=== PATIENT | male | born 1980 | race Caucasian/White ===

== ENCOUNTER 2018-10-28 00:45 | Emergency (ER) | payer SELFPAY ==
[~2018-10-28] VITALS: Ht 193 cm; Wt 111.6 kg
[2018-10-28 01:20] VITALS: BP 144/93
[2018-10-28] MEDS ORDERED: FLUORESCEIN OPHTH TEST STRIP. ONE (01:47)
[2018-10-28] MEDS ORDERED: TETRACAINE 0.5% OPHTH SOLUTION 4ML BOTTLE. ONE (01:47)
[2018-10-28] MEDS ORDERED: EYE-STREAM OPHTH SOLUTION 120 ML BOTTLE. ONE (01:47)
[2018-10-28] MEDS ORDERED: CEPH500C PO (01:56)
[2018-10-28] MEDS ORDERED: POLY10DR3 EACHEYE (01:56)
[2018-10-28] MEDS ORDERED: FLUORESCEIN OPHTH TEST STRIP. OS ONE (02:00)
[2018-10-28] MEDS ORDERED: TETRACAINE 0.5% OPHTH SOLUTION 4ML BOTTLE. OU ONE (02:00)
--- NOTE | 2018-10-28 02:31 | PHYS DOC ---
Past Medical History Past Medical History: Hepatitis, Liver Disease, Other Additional Past Medical Histor: RIGHT EAR DEAFNESS,HEART MUMUR, PTSD Past Surgical History: Cholecystectomy, Other Additional Past Surgical Histo: HERNIA REPAIR, RIGHT LEG FX, TONSILS Alcohol Use: None Drug Use: None Adult General Chief Complaint Chief Complaint: EYE PROBLEMS HPI HPI Patient is a 38 year old male presenting with chief complaint of eye redness and irritation drainage from the eye times one day he is at RSI he says he is very hungry. 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 Review of Systems Review of Systems Respiratory: Denies cough or shortness of breath [] Cardiovascular: No additional information not addressed in HPI [] GI: Denies abdominal pain, nausea, vomiting, bloody stools or diarrhea [] : Denies dysuria or hematuria [] Musculoskeletal: Denies back pain or joint pain [] Integument: Denies rash or skin lesions [] Neurologic: Denies headache, focal weakness or sensory changes [] Endocrine: Denies polyuria or polydipsia [] All other systems were reviewed and found to be within normal limits, except as documented in this note. Current Medications Current Medications Current Medications Medications (Trade) Dose Ordered Sig/Julio Cesar Start Time Stop Time Status Last Admin Dose Admin Balanced Salt Solution (Eye-Stream) 120 ml STK-MED ONCE 10/28/18 01:47 10/28/18 01:48 DC Fluorescein Sodium (Ful-Kim) 1 strip 1X ONCE 10/28/18 02:00 10/28/18 02:01 DC Tetracaine HCl (Tetracaine) 1 drop 1X ONCE 10/28/18 02:00 10/28/18 02:01 DC Allergies Allergies Allergies Coded Allergies Type Severity Reaction Last Updated Verified No Known Drug Allergies 11/09/15 No Physical Exam Physical Exam Constitutional: Well developed, well nourished, no acute distress, non-toxic appearance. [] HENT: Normocephalic, atraumatic, bilateral external ears normal, oropharynx moist, no oral exudates, nose normal. [] Eyes: Left eye there is matted crusty drainage conjunctiva injection cornea shows no uptake anterior chamber quiet no proptosis there is some abnormal eye movements at baseline some nystagmus essentially the patient says is old. Visual acuity is 20/40 in the affected eye possibly mild tenderness and erythema and appear E orbital area but again no proptosis noted. Pulmonary: Normal respiratory effort no increased work of breathing no obvious chest wall trauma Abdomen: Bowel sounds normal, soft, no tenderness, no masses, no pulsatile masses. [] Skin: Warm, dry, no erythema, no rash. [] Back: No tenderness, no CVA tenderness. [] Extremities: No tenderness, no cyanosis, no clubbing, ROM intact, no edema. [] Current Patient Data Vital Signs Vital Signs Date Time Temp Pulse Resp B/P (MAP) Pulse Ox O2 Delivery O2 Flow Rate FiO2 10/28/18 01:20 99.7 118 16 144/93 (110) 96 Room Air 99.7 EKG EKG [] Radiology/Procedures Radiology/Procedures [] Course & Med Decision Making Course & Med Decision Making Pertinent Labs and Imaging studies reviewed. (See chart for details) []Suspect conjunctivitis moderately bad also may be a component of some preseptal cellulitis given the low-grade fever I give Keflex as well as antibiotic drops for the conjunctivitis temp low grade heart rate was 110 on my reevaluation when I was examining his eye. He was given good return precautions we discharged in stable condition. Dragon Disclaimer Dragon Disclaimer This electronic medical record was generated, in whole or in part, using a voice recognition dictation system. Departure Departure Impression: Primary Impression: Conjunctivitis Disposition: 01 HOME, SELF-CARE Condition: STABLE Patient Instructions: Conjunctivitis (Viral and Bacterial) Scripts Cephalexin (CEPHALEXIN) 500 Mg Capsule 1 CAP PO QID, #40 CAP Prov: KODY SOTO MD 10/28/18 Polymyxin B Sulf/Trimethoprim (POLYMYXIN B-TMP EYE DROPS) 10 Ml Drops 1 DROP EACHEYE QID, #10 ML Prov: KODY SOTO MD 10/28/18 KODY SOTO MD Oct 28, 2018 02:31
== END 2018-10-28 02:28 | disposition home or self-care (01) ==
LOC: ER 00:45
DX: H10.89 Other conjunctivitis (principal); Z90.49 Acquired absence of other specified parts of digestive tract
CPT/HCPCS: 99283

== ENCOUNTER 2020-09-04 06:42 | Inpatient (IN) | payer OTHER ==
[~2020-09-04] VITALS: Ht 193 cm; Wt 127.0 kg
[~2020-09-04 06:42] MED LIST: CEPH500C PO; PALI156D IM; POLY10DR3 EACHEYE
--- NOTE | 2020-09-04 08:03 | RAD ---
EXAM: Chest, single view. HISTORY: Cough. Fever. COMPARISON: 11/09/2015 FINDINGS: A frontal view of the chest is obtained. There is no infiltrate, pleural effusion or pneumo thorax. The heart is normal in size. IMPRESSION: No acute pulmonary finding. Electronically signed by: Luciana Mehta MD (09/04/2020 8:00 AM) [facility]
[2020-09-04 10:30] LABS: BARBITURATES NEG (NEG); BENZODIAZEPINES NEG (NEG); CANNABINOIDS NEG (NEG); COCAINE NEG (NEG); METHADONE NEG (NEG); OPIATES NEG (NEG); PHENCYCLIDINE NEG (NEG)
[2020-09-04 10:33] LABS: AMPHETAMINE/METHAMPHETAMINE NEG (NEG); BILIRUBIN,URINE NEGATIVE (NEG); CLARITY,URINE CLEAR; COLOR,URINE YELLOW; NITRITE,URINE NEGATIVE (NEG); PH,URINE 5.5 (<5.0-8.0); PROTEIN,URINE NEGATIVE (NEG-TRACE); UROBILINOGEN,URINE 0.2 mg/dL (0.2 mg/dL)
[2020-09-04 10:40] LABS: BACTERIA,URINE 0 /HPF (0-FEW); RBC,URINE 0 /HPF (0-2); WBC,URINE 0 /HPF (0-4)
[2020-09-04 11:38] LABS: BASO # 0.1 x10^3/uL (0.0-0.2); BASO % 1 % (0-3); EOS % 0 % (0-3); HEMATOCRIT 39.7 % (39.0-53.0); HEMOGLOBIN 13.3 g/dL (13.0-17.5); LYMPH # 1.1 x10^3/uL (1.0-4.8); LYMPH % 12 % (24-48); MEAN CORPUSCULAR HEMOGLOBIN 31 pg (25-35); MEAN CORPUSCULAR HGB CONC 34 g/dL (31-37); MEAN CORPUSCULAR VOLUME 92 fL (79-100); MONO # 1.2 x10^3/uL (0.0-1.1); MONO % 13 % (0-9); NEUT # 6.7 x10^3/uL (1.8-7.7); NEUT % 74 % (31-73); PLATELET COUNT 235 x10^3/uL (140-400); RED CELL DISTRIBUTION WIDTH 14.1 % (11.5-14.5)
[2020-09-04 11:48] LABS: CREATININE 0.8 mg/dL (0.7-1.3); GFR 107.6; POTASSIUM 3.7 mmol/L (3.5-5.1)
[2020-09-04 11:53] LABS: ALBUMIN 3.4 g/dL (3.4-5.0); ALBUMIN/GLOBULIN RATIO 1.2 (1.0-1.7); TOTAL BILIRUBIN 0.3 mg/dL (0.2-1.0); TOTAL PROTEIN 6.3 g/dL (6.4-8.2)
[2020-09-04 11:54] LABS: INFLUENZA A PATIENT NEGATIVE (NEGATIVE); INFLUENZA B PATIENT NEGATIVE (NEGATIVE)
[2020-09-04 11:56] LABS: ACETAMIN < 2 mcg/ml (10-30); ETHANOL < 10 mg/dL (0-10); SALIC < 2.8 mg/dL (2.8-20.0)
--- NOTE | 2020-09-04 13:21 | PHYS DOC ---
Past Medical History Past Medical History: Bipolar, Depression, Hepatitis, Liver Disease, Other Additional Past Medical Histor: RIGHT EAR DEAFNESS,HEART MUMUR, PTSD Past Surgical History: Cholecystectomy, Other Additional Past Surgical Histo: HERNIA REPAIR, RIGHT LEG FX, TONSILS Smoking Status: Current Every Day Smoker Alcohol Use: None Drug Use: None Social History Narrative: PATIENT REPORTS HE IS "CLEAN" General Adult EDM: Chief Complaint: SUICDAL IDEATION HPI: HPI: Patient is a 40 year old male with history of bipolar disorder, anxiety, depression was brought here by EMS for evaluation cough, fever, sore throat, body ache for 2 days. Patient denies any abdominal pain, no chest pain, no trouble breathing. Patient also said he is suicidal, had no specific plan he had a lot of going on in his life that he does not want to live anymore. Review of Systems: Review of Systems: Constitutional: positive for fever or chills. [] Eyes: Denies change in visual acuity. [] HENT: Positive for nasal congestion or sore throat. [] Respiratory: Positive for cough , no shortness of breath. [] Cardiovascular: Denies chest pain or edema. [] GI: Denies abdominal pain, nausea, vomiting, bloody stools or diarrhea. [] : Denies dysuria. [] Musculoskeletal: Denies back pain or joint pain. [] Integument: Denies rash. [] Neurologic: Denies headache, focal weakness or sensory changes. [] Endocrine: Denies polyuria or polydipsia. [] Lymphatic: Denies swollen glands. [] Psychiatric: Positive for depression , suicidal ideation and anxiety. [] Heart Score: Risk Factors: Risk Factors: DM, Current or recent (<one month) smoker, HTN, HLP, family history of CAD, obesity. Risk Scores: Score 0 - 3: 2.5% MACE over next 6 weeks - Discharge Home Score 4 - 6: 20.3% MACE over next 6 weeks - Admit for Clinical Observation Score 7 - 10: 72.7% MACE over next 6 weeks - Early Invasive Strategies Allergies: Allergies: Allergies Coded Allergies Type Severity Reaction Last Updated Verified acetaminophen Allergy Unknown RASH 09/04/20 Yes Physical Exam: PE: Constitutional: Well developed, well nourished, no acute distress, non-toxic appearance. [] HENT: Normocephalic, atraumatic, bilateral external ears normal, oropharynx moist, no oral exudates, nose normal. [] Eyes: PERRLA, EOMI, conjunctiva normal, no discharge. [] Neck: Normal range of motion, no tenderness, supple, no stridor. [] Cardiovascular:Heart rate regular rhythm, no murmur [] Lungs & Thorax: Bilateral breath sounds clear to auscultation [] Abdomen: Bowel sounds normal, soft, no tenderness, no masses, no pulsatile masses. [] Skin: Warm, dry, no erythema, no rash. [] Back: No tenderness, no CVA tenderness. [] Extremities: No tenderness, no cyanosis, no clubbing, ROM intact, no edema. [] Neurologic: Alert and oriented X 3, normal motor function, normal sensory function, no focal deficits noted. [] Psychologic: admitted of being depressed, suicidal ideation but no plan. Current Patient Data: Labs: Laboratory Tests Test 09/04/20 10:00 09/04/20 11:16 09/04/20 11:20 Urine Collection Type Unknown Urine Color Yellow Urine Clarity Clear Urine pH 5.5 (<5.0-8.0) Urine Specific [place] 1.020 (1.000-1.030) Urine Protein Negative mg/dL (NEG-TRACE) Urine Glucose (UA) Negative mg/dL (NEG) Urine Ketones (Stick) Negative mg/dL (NEG) Urine Blood Negative (NEG) Urine Nitrite Negative (NEG) Urine Bilirubin Negative (NEG) Urine Urobilinogen Dipstick 0.2 mg/dL (0.2 mg/dL) Urine Leukocyte Esterase Negative (NEG) Urine RBC 0 /HPF (0-2) Urine WBC 0 /HPF (0-4) Urine Squamous Epithelial Cells Few /LPF Urine Bacteria 0 /HPF (0-FEW) Urine Opiates Screen Neg (NEG) Urine Methadone Screen Neg (NEG) Urine Barbiturates Neg (NEG) Urine Phencyclidine Screen Neg (NEG) Urine Amphetamine/Methamphetamine Neg (NEG) Urine Benzodiazepines Screen Neg (NEG) Urine Cocaine Screen Neg (NEG) Urine Cannabinoids Screen Neg (NEG) Urine Ethyl Alcohol Neg (NEG) White Blood Count 9.0 x10^3/uL (4.0-11.0) Red Blood Count 4.30 x10^6/uL (4.30-5.70) Hemoglobin 13.3 g/dL (13.0-17.5) Hematocrit 39.7 % (39.0-53.0) Mean Corpuscular Volume 92 fL (79-100) Mean Corpuscular Hemoglobin 31 pg (25-35) Mean Corpuscular Hemoglobin Concent 34 g/dL (31-37) Red Cell Distribution Width 14.1 % (11.5-14.5) Platelet Count 235 x10^3/uL (140-400) Neutrophils (%) (Auto) 74 % (31-73) H Lymphocytes (%) (Auto) 12 % (24-48) L Monocytes (%) (Auto) 13 % (0-9) H Eosinophils (%) (Auto) 0 % (0-3) Basophils (%) (Auto) 1 % (0-3) Neutrophils # (Auto) 6.7 x10^3/uL (1.8-7.7) Lymphocytes # (Auto) 1.1 x10^3/uL (1.0-4.8) Monocytes # (Auto) 1.2 x10^3/uL (0.0-1.1) H Eosinophils # (Auto) 0.0 x10^3/uL (0.0-0.7) Basophils # (Auto) 0.1 x10^3/uL (0.0-0.2) Sodium Level 139 mmol/L (136-145) Potassium Level 3.7 mmol/L (3.5-5.1) Chloride Level 104 mmol/L (98-107) Carbon Dioxide Level 27 mmol/L (21-32) Anion Gap 8 (6-14) Blood Urea Nitrogen 9 mg/dL (8-26) Creatinine 0.8 mg/dL (0.7-1.3) Estimated GFR (Cockcroft-Gault) 107.6 BUN/Creatinine Ratio 11 (6-20) Glucose Level 92 mg/dL (70-99) Calcium Level 8.0 mg/dL (8.5-10.1) L Total Bilirubin 0.3 mg/dL (0.2-1.0) Aspartate Amino Transferase (AST) 49 U/L (15-37) H Alanine Aminotransferase (ALT) 77 U/L (16-63) H Alkaline Phosphatase 91 U/L (46-116) Total Protein 6.3 g/dL (6.4-8.2) L Albumin 3.4 g/dL (3.4-5.0) Albumin/Globulin Ratio 1.2 (1.0-1.7) Salicylates Level < 2.8 mg/dL (2.8-20.0) L Salicylate Last Dose Date Unknown Salicylate Last Dose Time Unknown Acetaminophen Level < 2 mcg/ml (10-30) L Acetaminophen Last Dose Date Unknown Acetaminophen Last Dose Time Unknown Ethyl Alcohol Level < 10 mg/dL (0-10) Influenza Type A Antigen Negative (NEGATIVE) Influenza Type B Antigen Negative (NEGATIVE) SARS-CoV-2 Antigen (Rapid) Positive (NEGATIVE) *A Laboratory Tests 09/04/20 11:16 Laboratory Tests 09/04/20 11:16 Vital Signs: Vital Signs Date Time Temp Pulse Resp B/P (MAP) Pulse Ox O2 Delivery O2 Flow Rate FiO2 09/04/20 10:15 103 136/62 (86) 95 09/04/20 08:15 Room Air 09/04/20 06:43 99.1 16 99.1 EKG: EKG: [] Radiology/Procedures: Radiology/Procedures: [id number] [place] [address] IMAGING REPORT Signed PATIENT: STEPHANIE HICKAMN ACCOUNT: [id number] : 1980 LOCATION: ER AGE: 40 SEX: M EXAM STATUS: REG ER ORD. PHYSICIAN: VIKTOR BRYANT DO REASON: cough, fever PROCEDURE: CHEST AP ONLY EXAM: Chest, single view. HISTORY: Cough. Fever. COMPARISON: 11/09/2015 FINDINGS: A frontal view of the chest is obtained. There is no infiltrate, pleural effusion or pneumothorax. The heart is normal in size. IMPRESSION: No acute pulmonary finding. Electronically signed by: Luciana Lunsford MD (09/04/2020 8:00 AM) [facility] DICTATED and SIGNED BY: LUCIANA LUNSFORD MD DATE: 09/04/20 [id number] 0 Course & Med Decision Making: Course & Med Decision Making Pertinent Labs and Imaging studies reviewed. (See chart for details) Patient is a 40-year-old male who presented to ER for suicidal ideation and depression with upper respiratory infection, cough and fever. Patient was tested positive for COVID-19. Patient was evaluated by the PAT team for his suicidal ideation, recommended psychiatric placement. However due to COVID-19 infection, there will be no placement available anywhere around the city anytime soon. Therefore patient will be admitted to the hospital here, psychiatry will be consulted while he admitted. Dragon Disclaimer: Dragon Disclaimer: This electronic medical record was generated, in whole or in part, using a voice recognition dictation system. Departure Departure Impression: Primary Impression: Suicidal ideation Additional Impression: COVID-19 virus infection Disposition: ADMITTED INPT THIS HOSP Admitting Physician: [facility] (DR. PALMA) Condition: STABLE Referrals: NO PCP (PCP) VIKTOR BRYANT DO Sep 04, 2020 13:21
[2020-09-04] MEDS: IBUPROFEN 200 MG TABLET. PO PRN (19:22)
--- NOTE | 2020-09-05 07:08 | PDOC1 ---
History and Physical Date of Admission Date of Admission DATE: 09/05/20 TIME: 07:03 Identification/Chief Complaint Chief Complaint Suicidal, COVID 19 Source Source: Patient History of Present Illness History of Present Illness Mr Falocn is a 40 yo M w/ PMHx Bipolar, Depression, Hepatitis, Liver Disease, right ear deafness, PTSD, smoker, methamphetamine abuse in remission who was brought to ED via EMS from [facility] for evaluation cough, fever, sore throat, body ache for 2 days. Patient denies any abdominal pain, no chest pain, no trouble breathing. Patient also said he is suicidal, had no specific plan he had a lot of going on in his life that he does not want to live anymore. When asked about a plan he tells me he would probably overdose. On further review he notes another resident at his rehab facility has COVID 19. He was recently treated for DVT of his LLE and bipolar disorder at [facility] 08/15/2020 and has been undergoing drug rehabilitation inpatient for his methamphetamine abuse history. In ED labs notable for COVID 19 rapid antigen test positive, WBC 9, Hb 13.3, platelets 235, Na 139, K 3.7, BUN 9, Cr 0.8, glucose 92, AST 49, ALT 77. Admitted for further care. Past Medical History Hepatobiliary: Hep A/B/C Psych: Anxiety, Addictions, Bipolar, Depression Past Surgical History Past Surgical History: Cholecystectomy, Hernia Repair, Tonsillectomy, Other (left leg fracture) Family History Family History: Depression Social History Smoke: 1 pack per day ALCOHOL: none Drugs: Crystal meth (in remission) Current Problem List Problem List Problems Medical Problems: (1) COVID-19 virus infection Status: Acute (2) Suicidal ideation Status: Acute Current Medications Current Medications Current Medications Ibuprofen (Motrin) 600 mg PRN Q6HRS PRN PO INFLAMMATION Last administered on 09/04/20at 19:22; Start 09/04/20 at 18:00 Active Scripts Active Cephalexin 500 Mg Capsule 1 Cap PO QID Polymyxin B-Tmp Eye Drops (Polymyxin B Sulf/Trimethoprim) 10 Ml Drops 1 Drop EACHEYE QID Allergies Allergies: Coded Allergies: acetaminophen (Verified Allergy, Unknown, RASH, 09/04/20) ROS General: YES: Fatigue, Malaise; No: Chills, Night Sweats, Appetite, Other PSYCHOLOGICAL ROS: YES: Anxiety, Concentration difficultie, Depression, Irritablity, Memory difficulties, Mood Swings, Obsessive thoughts, Suicidal ideation; No: Behavioral Disorder, Decreased libido, Disorientation, Hallucinations, Hostility, Physical abuse, Sexual abuse, Sleep disturbances, Other Eyes: No Blurry vision, No Decreased vision, No Double vision, No Dry eyes, No Excessive tearing, No Eye Pain, No Itchy Eyes, No Loss of vision, No Photophobia, No Scotomata, No Uses contacts, No Uses glasses, No Other HEENT: No: Heacaches, Visual Changes, Hearing change, Nasal congestion, Nasal discharge, Oral lesions, Sinus pain, Sore Throat, Epistaxis, Sneezing, Snoring, Tinnitus, Vertigo, Vocal changes, Other ALLERGY AND IMMUNOLOGY: No: Hives, Insect Bite Sensitivity, Itchy/Watery Eyes, Nasal Congestion, Post Nasal Drip, Seasonal Allergies, Other Hematological and Lymphatic: YES: Blood Clots; No: Bleeding Problems, Blood Transfusions, Brusing, Night Sweats, Pallor, Swollen Lymph Nodes, Other ENDOCRINE: No: Breast Changes, Galactorrhea, Hair Pattern Changes, Hot Flashes, Malaise/lethargy, Mood Swings, Palpitations, Polydipsia/polyuria, Skin Changes, Temperature Intolerance, Unexpected Weight Changes, Other Breast: No New/Changing Breast Lumps, No Nipple changes, No Nipple discharge, No Other Respiratory: YES: Cough; No: Hemoptysis, Orthopnea, Pleuritic Pain, Shortness of breath, SOB with excertion, Sputum Changes, Stridor, Tachypnea, Wheezing, Other Cardiovascular: No Chest Pain, No Palpitations, No Orthopnea, No Paroxysmal Noc. Dyspnea, No Edema, No Lt Headedness, No Other Gastrointestinal: No Nausea, No Vomiting, No Abdominal Pain, No Diarrhea, No Constipation, No Melena, No Hematochezia, No Other Genitourinary: No Dysuria, No Frequency, No Incontinence, No Hematuria, No Retention, No Discharge, No Urgency, No Pain, No Flank Pain, No Other, No , No , No , No , No , No , No Musculoskeletal: No Gait Disturbance, No Joint Pain, No Joint Stiffness, No Joint Swelling, No Muscle Pain, No Muscular Weakness, No Pain In:, No Swelling In:, No Other Neurological: No Behavorial Changes, No Bowel/Bladder ControlChng, No Confusion, No Dizziness, No Gait Disturbance, No Headaches, No Impaired Coord/balance, No Memory Loss, No Numbness/Tingling, No Seizures, No Speech Problems, No Tremors, No Visual Changes, No Weakness, No Other Skin: No Dry Skin, No Eczema, No Hair Changes, No Lumps, No Mole Changes, No Mottling, No Nail Changes, No Pruritus, No Rash, No Skin Lesion Changes, No Other, No Acne Physical Exam General: Alert, Oriented X3, Cooperative, mild distress HEENT: Atraumatic, PERRLA, EOMI, Mucous membr. moist/pink Lungs: Clear to auscultation, Normal air movement Heart: S1S2, RRR, no thrills, no rubs, no gallops, no murmurs Abdomen: Normal bowel sounds, Soft, No tenderness, No hepatosplenomegaly, No masses Rectal Exam: not examined Extremities: No clubbing, No cyanosis, No edema, Normal pulses, No tenderness/s welling Skin: No rashes, No breakdown, No significant lesion Neuro: Normal gait, Normal speech, Strength at 5/5 X4 ext, Normal tone, Sensation intact, Cranial nerves 3-12 NL, Reflexes 2+ Psych/Mental Status: Mental status NL, Other (Depressed, suicidal) Vitals Vitals Vital Signs Date Time Temp Pulse Resp B/P (MAP) Pulse Ox O2 Delivery O2 Flow Rate FiO2 09/05/20 05:00 99.2 92 150/65 (93) 94 99.2 09/05/20 00:45 18 09/04/20 16:49 Room Air Labs Labs Laboratory Tests Test 09/04/20 10:00 09/04/20 11:16 09/04/20 11:20 Urine Collection Type Unknown Urine Color Yellow Urine Clarity Clear Urine pH 5.5 (<5.0-8.0) Urine Specific [place] 1.020 (1.000-1.030) Urine Protein Negative mg/dL (NEG-TRACE) Urine Glucose (UA) Negative mg/dL (NEG) Urine Ketones (Stick) Negative mg/dL (NEG) Urine Blood Negative (NEG) Urine Nitrite Negative (NEG) Urine Bilirubin Negative (NEG) Urine Urobilinogen Dipstick 0.2 mg/dL (0.2 mg/dL) Urine Leukocyte Esterase Negative (NEG) Urine RBC 0 /HPF (0-2) Urine WBC 0 /HPF (0-4) Urine Squamous Epithelial Cells Few /LPF Urine Bacteria 0 /HPF (0-FEW) Urine Opiates Screen Neg (NEG) Urine Methadone Screen Neg (NEG) Urine Barbiturates Neg (NEG) Urine Phencyclidine Screen Neg (NEG) Urine Amphetamine/Methamphetamine Neg (NEG) Urine Benzodiazepines Screen Neg (NEG) Urine Cocaine Screen Neg (NEG) Urine Cannabinoids Screen Neg (NEG) Urine Ethyl Alcohol Neg (NEG) White Blood Count 9.0 x10^3/uL (4.0-11.0) Red Blood Count 4.30 x10^6/uL (4.30-5.70) Hemoglobin 13.3 g/dL (13.0-17.5) Hematocrit 39.7 % (39.0-53.0) Mean Corpuscular Volume 92 fL (79-100) Mean Corpuscular Hemoglobin 31 pg (25-35) Mean Corpuscular Hemoglobin Concent 34 g/dL (31-37) Red Cell Distribution Width 14.1 % (11.5-14.5) Platelet Count 235 x10^3/uL (140-400) Neutrophils (%) (Auto) 74 % (31-73) Lymphocytes (%) (Auto) 12 % (24-48) Monocytes (%) (Auto) 13 % (0-9) Eosinophils (%) (Auto) 0 % (0-3) Basophils (%) (Auto) 1 % (0-3) Neutrophils # (Auto) 6.7 x10^3/uL (1.8-7.7) Lymphocytes # (Auto) 1.1 x10^3/uL (1.0-4.8) Monocytes # (Auto) 1.2 x10^3/uL (0.0-1.1) Eosinophils # (Auto) 0.0 x10^3/uL (0.0-0.7) Basophils # (Auto) 0.1 x10^3/uL (0.0-0.2) Sodium Level 139 mmol/L (136-145) Potassium Level 3.7 mmol/L (3.5-5.1) Chloride Level 104 mmol/L (98-107) Carbon Dioxide Level 27 mmol/L (21-32) Anion Gap 8 (6-14) Blood Urea Nitrogen 9 mg/dL (8-26) Creatinine 0.8 mg/dL (0.7-1.3) Estimated GFR (Cockcroft-Gault) 107.6 BUN/Creatinine Ratio 11 (6-20) Glucose Level 92 mg/dL (70-99) Calcium Level 8.0 mg/dL (8.5-10.1) Total Bilirubin 0.3 mg/dL (0.2-1.0) Aspartate Amino Transf (AST/SGOT) 49 U/L (15-37) Alanine Aminotransferase (ALT/SGPT) 77 U/L (16-63) Alkaline Phosphatase 91 U/L (46-116) Total Protein 6.3 g/dL (6.4-8.2) Albumin 3.4 g/dL (3.4-5.0) Albumin/Globulin Ratio 1.2 (1.0-1.7) Salicylates Level < 2.8 mg/dL (2.8-20.0) Salicylate Last Dose Date Unknown Salicylate Last Dose Time Unknown Acetaminophen Level < 2 mcg/ml (10-30) Acetaminophen Last Dose Date Unknown Acetaminophen Last Dose Time Unknown Ethyl Alcohol Level < 10 mg/dL (0-10) Influenza Type A Antigen Negative (NEGATIVE) Influenza Type B Antigen Negative (NEGATIVE) SARS-CoV-2 Antigen (Rapid) Positive (NEGATIVE) Laboratory Tests Test 09/04/20 10:00 09/04/20 11:16 09/04/20 11:20 Urine Collection Type Unknown Urine Color Yellow Urine Clarity Clear Urine pH 5.5 (<5.0-8.0) Urine Specific [place] 1.020 (1.000-1.030) Urine Protein Negative mg/dL (NEG-TRACE) Urine Glucose (UA) Negative mg/dL (NEG) Urine Ketones (Stick) Negative mg/dL (NEG) Urine Blood Negative (NEG) Urine Nitrite Negative (NEG) Urine Bilirubin Negative (NEG) Urine Urobilinogen Dipstick 0.2 mg/dL (0.2 mg/dL) Urine Leukocyte Esterase Negative (NEG) Urine RBC 0 /HPF (0-2) Urine WBC 0 /HPF (0-4) Urine Squamous Epithelial Cells Few /LPF Urine Bacteria 0 /HPF (0-FEW) Urine Opiates Screen Neg (NEG) Urine Methadone Screen Neg (NEG) Urine Barbiturates Neg (NEG) Urine Phencyclidine Screen Neg (NEG) Urine Amphetamine/Methamphetamine Neg (NEG) Urine Benzodiazepines Screen Neg (NEG) Urine Cocaine Screen Neg (NEG) Urine Cannabinoids Screen Neg (NEG) Urine Ethyl Alcohol Neg (NEG) White Blood Count 9.0 x10^3/uL (4.0-11.0) Red Blood Count 4.30 x10^6/uL (4.30-5.70) Hemoglobin 13.3 g/dL (13.0-17.5) Hematocrit 39.7 % (39.0-53.0) Mean Corpuscular Volume 92 fL (79-100) Mean Corpuscular Hemoglobin 31 pg (25-35) Mean Corpuscular Hemoglobin Concent 34 g/dL (31-37) Red Cell Distribution Width 14.1 % (11.5-14.5) Platelet Count 235 x10^3/uL (140-400) Neutrophils (%) (Auto) 74 % (31-73) Lymphocytes (%) (Auto) 12 % (24-48) Monocytes (%) (Auto) 13 % (0-9) Eosinophils (%) (Auto) 0 % (0-3) Basophils (%) (Auto) 1 % (0-3) Neutrophils # (Auto) 6.7 x10^3/uL (1.8-7.7) Lymphocytes # (Auto) 1.1 x10^3/uL (1.0-4.8) Monocytes # (Auto) 1.2 x10^3/uL (0.0-1.1) Eosinophils # (Auto) 0.0 x10^3/uL (0.0-0.7) Basophils # (Auto) 0.1 x10^3/uL (0.0-0.2) Sodium Level 139 mmol/L (136-145) Potassium Level 3.7 mmol/L (3.5-5.1) Chloride Level 104 mmol/L (98-107) Carbon Dioxide Level 27 mmol/L (21-32) Anion Gap 8 (6-14) Blood Urea Nitrogen 9 mg/dL (8-26) Creatinine 0.8 mg/dL (0.7-1.3) Estimated GFR (Cockcroft-Gault) 107.6 BUN/Creatinine Ratio 11 (6-20) Glucose Level 92 mg/dL (70-99) Calcium Level 8.0 mg/dL (8.5-10.1) Total Bilirubin 0.3 mg/dL (0.2-1.0) Aspartate Amino Transf (AST/SGOT) 49 U/L (15-37) Alanine Aminotransferase (ALT/SGPT) 77 U/L (16-63) Alkaline Phosphatase 91 U/L (46-116) Total Protein 6.3 g/dL (6.4-8.2) Albumin 3.4 g/dL (3.4-5.0) Albumin/Globulin Ratio 1.2 (1.0-1.7) Salicylates Level < 2.8 mg/dL (2.8-20.0) Salicylate Last Dose Date Unknown Salicylate Last Dose Time Unknown Acetaminophen Level < 2 mcg/ml (10-30) Acetaminophen Last Dose Date Unknown Acetaminophen Last Dose Time Unknown Ethyl Alcohol Level < 10 mg/dL (0-10) Influenza Type A Antigen Negative (NEGATIVE) Influenza Type B Antigen Negative (NEGATIVE) SARS-CoV-2 Antigen (Rapid) Positive (NEGATIVE) Images Images Chest radiograph: A frontal view of the chest is obtained. There is no infiltrate, pleural effusion or pneumothorax. The heart is normal in size. IMPRESSION: No acute pulmonary finding. VTE Prophylaxis Ordered VTE Prophylaxis Devices: No VTE Pharmacological Prophylaxi: Yes Assessment/Plan Assessment/Plan A/P: Suicidal ideation - 1-1 sitter. P.A.T. consult. Cont home meds COVID 19 - not currently hypoxic, will observe. Transaminitis - likely from COVID 19. Will monitor LFTs Bipolar, Depression - had invega depo on 08/15/2020. 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 This is complicated by his COVID 19 diagnosis and will delay his necessary treatment at least 10 days Justifications for Admission Other Justification TIA FARMER MD Sep 05, 2020 07:08
[2020-09-05] MEDS ORDERED: APIX5TAB4 PO (07:11)
[2020-09-05] MEDS ORDERED: SERT-268 PO (07:11)
--- NOTE | 2020-09-05 07:13 | NUR ---
Assumed care of patient at this time.
[2020-09-05] MEDS ORDERED: IBUPROFEN 200 MG TABLET. PO PRN (07:15)
[2020-09-05] MEDS ORDERED: KETOROLAC 30 MG/ML VIAL. IV PRN (07:15)
[2020-09-05] MEDS ORDERED: ONDANSETRON PF 4 MG/2 ML VIAL. IV PRN (07:15)
[2020-09-05] MEDS ORDERED: hydrOXYzine 25 MG TABLET PO PRN (07:15)
[2020-09-05] MEDS ORDERED: ANTI-COAG MONITOR BY PHARMACY. MC PRN (08:15)
[2020-09-05] MEDS: SERTRALINE 50 MG TABLET. PO SCH (09:00)
--- NOTE | 2020-09-05 09:36 | NUR ---
Patient states he is suicidal, does not want to talk about about it. Addendum: 09/05/20 at 4733 by ANKITA BERG RN RN Amended: Links added.
[2020-09-05] MEDS ORDERED: INFLUENZA VAX SCREEN BY RX. MC ONE (09:45)
[2020-09-05] MEDS: APIXABAN 5 MG TABLET. PO SCH ×2 (09:51→21:08)
[2020-09-05 17:55] VITALS: BP 137/86
[2020-09-05 19:00] VITALS: BP 125/79
[2020-09-05 23:00] VITALS: BP 143/84
[2020-09-06 03:30] VITALS: BP 124/77
[2020-09-06] MEDS: guaiFENesin DM 200MG/20MG 10 ML SYRUP PO PRN (06:12)
[2020-09-06] MEDS: IBUPROFEN 200 MG TABLET. PO PRN (06:13)
[2020-09-06 07:00] VITALS: BP 147/78
[2020-09-06] MEDS: SERTRALINE 50 MG TABLET. PO SCH (09:13)
[2020-09-06] MEDS: APIXABAN 5 MG TABLET. PO SCH ×2 (09:13→21:10)
[2020-09-06 11:00] VITALS: BP 146/92
--- NOTE | 2020-09-06 13:02 | PDOC ---
[employer] PROGRESS NOTE Date of Service DOS: DATE: 09/06/20 TIME: 13:01 Chief Complaint Chief Complaint A/P: Suicidal ideation - 1-1 sitter. P.A.T. consult. Cont home meds COVID 19 - not currently hypoxic, will observe. Transaminitis - likely from COVID 19. Will monitor LFTs Bipolar, Depression - had invega depo on 08/15/2020. 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 This is complicated by his COVID 19 diagnosis and will delay his necessary t reatment at least 10 days History of Present Illness History of Present Illness Mr Falcon is a 40 yo M w/ PMHx Bipolar, Depression, Hepatitis, Liver Disease, right ear deafness, PTSD, smoker, methamphetamine abuse in remission who was brought to ED via EMS from [facility] for evaluation cough, fever, sore throat, body ache for 2 days. Patient denies any abdominal pain, no chest pain, no trouble breathing. Patient also said he is suicidal, had no specific plan he had a lot of going on in his life that he does not want to live anymore. When asked about a plan he tells me he would probably overdose. On further review he notes another resident at his rehab facility has COVID 19. He was recently treated for DVT of his LLE and bipolar disorder at [facility] 08/15/2020 and has been undergoing drug rehabilitation inpatient for his methamphetamine abuse history. In ED labs notable for COVID 19 rapid antigen test positive, WBC 9, Hb 13.3, platelets 235, Na 139, K 3.7, BUN 9, Cr 0.8, glucose 92, AST 49, ALT 77. Admitted for further care. No overnight events. Afebrile. Has some shortness of breath. He is still saying he is suicidal, but notes no plan. Vitals/I&O Vitals/I&O: Vital Signs Date Time Temp Pulse Resp B/P (MAP) Pulse Ox O2 Delivery O2 Flow Rate FiO2 09/06/20 11:00 97.5 87 18 146/92 (110) 93 Room Air 97.5 I & O 09/05/20 09/05/20 09/06/20 15:00 23:00 07:00 Intake Total 280 ml 0 ml Output Total 550 ml Balance -550 ml 280 ml 0 ml Physical Exam General: Alert, Oriented X3, Cooperative, mild distress Abdomen: Normal bowel sounds, Soft, No tenderness, No hepatosplenomegaly, No masses Extremities: No clubbing, No cyanosis, No edema, Normal pulses, No tenderness/swelling Skin: No rashes, No breakdown, No significant lesion Assessment and Plan Assessmemt and Plan Problems Medical Problems: (1) COVID-19 virus infection Status: Acute (2) Suicidal ideation Status: Acute Comment Review of Relevant I have reviewed the following items rex (where applicable) has been applied. Justifications for Admission Other Justification TIA FARMER MD Sep 06, 2020 13:02
--- NOTE | 2020-09-06 13:11 | NUR ---
SW following for discharge planning. Spoke with RN and reviewed chart. Pt was at [phone] prior to this admission. Pt's RAPID COVID result is positive. Pt SI and on a 1:1. Pt on room air and oral medications. Pt can return to [facility] after 10 days. Pt seen by ANNIA in the ER. QUINN spoke with Taye from [facility] who is awaiting final COVID result for possible in-patient psychiatric placement at . [facility] for pt's out-patient CM Angelica Holt ([phone]). SW following. Addendum: 09/06/20 at 1709 by TAL BALL Spoke with KAELYN Dominguez. Pt is homeless at this time and working with CM to find housing. QUINN informed CM of possible funds available through the [facility] for temporary housing for those with COVID with the [facility] [place] near the [place]. Pt remains SI though and SW awaiting final COVID result to see about discharge to in-patient psychiatric care or return to [facility].
[2020-09-06 15:00] VITALS: BP 136/88
[2020-09-06 19:00] VITALS: BP 163/79
[2020-09-06 22:55] VITALS: BP 147/77
[2020-09-07 03:00] VITALS: BP 115/67
[2020-09-07 07:05] VITALS: BP 131/77
[2020-09-07] MEDS: APIXABAN 5 MG TABLET. PO SCH ×2 (07:55→20:57)
[2020-09-07] MEDS: SERTRALINE 50 MG TABLET. PO SCH (07:56)
[2020-09-07 11:03] VITALS: BP 135/107
--- NOTE | 2020-09-07 13:15 | PDOC ---
[employer] PROGRESS NOTE Date of Service DOS: DATE: 09/07/20 TIME: 13:13 Chief Complaint Chief Complaint A/P: Suicidal ideation - 1-1 sitter. P.A.T. consult. Cont home meds COVID 19 - not currently hypoxic, will observe. Transaminitis - likely from COVID 19. Will monitor LFTs Bipolar, Depression - had invega depo on 08/15/2020. 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 This is complicated by his COVID 19 diagnosis and will delay his necessary t reatment at least 10 days History of Present Illness History of Present Illness Mr Falcon is a 40 yo M w/ PMHx Bipolar, Depression, Hepatitis, Liver Disease, right ear deafness, PTSD, smoker, methamphetamine abuse in remission who was brought to ED via EMS from [facility] for evaluation cough, fever, sore throat, body ache for 2 days. Patient denies any abdominal pain, no chest pain, no trouble breathing. Patient also said he is suicidal, had no specific plan he had a lot of going on in his life that he does not want to live anymore. When asked about a plan he tells me he would probably overdose. On further review he notes another resident at his rehab facility has COVID 19. He was recently treated for DVT of his LLE and bipolar disorder at [facility] 08/15/2020 and has been undergoing drug rehabilitation inpatient for his methamphetamine abuse history. In ED labs notable for COVID 19 rapid antigen test positive, WBC 9, Hb 13.3, platelets 235, Na 139, K 3.7, BUN 9, Cr 0.8, glucose 92, AST 49, ALT 77. Admitted for further care. 09/06: No overnight events. Afebrile. Has some shortness of breath. He is still saying he is suicidal, but notes no plan. Afebrile. No overnight events. Throat culture returned with normal maranda. No shortness of breath today. States he is still suicidal and is willing to go anywhere inpatient for psychiatric care. Vitals/I&O Vitals/I&O: Vital Signs Date Time Temp Pulse Resp B/P (MAP) Pulse Ox O2 Delivery O2 Flow Rate FiO2 09/07/20 11:03 98.1 93 18 135/107 (116) 93 Room Air 98.1 I & O 0 09/06/20 09/06/20 09/07/20 15:00 23:00 07:00 Intake Total 400 ml 400 ml 0 ml Output Total 0 ml Balance 400 ml 400 ml 0 ml Physical Exam General: Alert, Oriented X3, Cooperative, mild distress Abdomen: Normal bowel sounds, Soft, No tenderness, No hepatosplenomegaly, No masses Extremities: No clubbing, No cyanosis, No edema, Normal pulses, No tenderness/swelling Skin: No rashes, No breakdown, No significant lesion Assessment and Plan Assessmemt and Plan Problems Medical Problems: (1) COVID-19 virus infection Status: Acute (2) Suicidal ideation Status: Acute Comment Review of Relevant I have reviewed the following items rex (where applicable) has been applied. Justifications for Admission Other Justification TIA FARMER MD Sep 07, 2020 13:15
[2020-09-07 14:18] LABS: BASO % 0 % (0-3); EOS # 0.1 x10^3/uL (0.0-0.7); EOS % 2 % (0-3); HEMATOCRIT 42.9 % (39.0-53.0); HEMOGLOBIN 14.1 g/dL (13.0-17.5); LYMPH # 1.5 x10^3/uL (1.0-4.8); LYMPH % 26 % (24-48); MEAN CORPUSCULAR HEMOGLOBIN 30 pg (25-35); MEAN CORPUSCULAR HGB CONC 33 g/dL (31-37); MEAN CORPUSCULAR VOLUME 93 fL (79-100); MONO # 0.7 x10^3/uL (0.0-1.1); MONO % 11 % (0-9); NEUT # 3.6 x10^3/uL (1.8-7.7); NEUT % 61 % (31-73); PLATELET COUNT 252 x10^3/uL (140-400); RED BLOOD COUNT 4.64 x10^6/uL (4.30-5.70); RED CELL DISTRIBUTION WIDTH 14.1 % (11.5-14.5); WHITE BLOOD COUNT 5.9 x10^3/uL (4.0-11.0)
[2020-09-07 14:34] LABS: ALBUMIN 3.2 g/dL (3.4-5.0); CALCIUM 7.9 mg/dL (8.5-10.1); CREATININE 0.6 mg/dL (0.7-1.3); POTASSIUM 3.6 mmol/L (3.5-5.1); TOTAL BILIRUBIN 0.5 mg/dL (0.2-1.0); TOTAL PROTEIN 6.5 g/dL (6.4-8.2)
[2020-09-07 15:09] VITALS: BP 130/86
--- NOTE | 2020-09-07 15:58 | NUR ---
QUINN following for discharge planning. Spoke with RN and reviewed chart. Pt remains on a 1:1 for SI. Pt's Rapid COVID result is positive. QUINN called the lab and they don't send out for the PCR if the Rapid result is positive. QUINN called [facility] in patient psychiatric facility and spoke with admissions. QUINN informed they won't take pt's based on Rapid results and that if pt has as negative COVID PCR result to send the referral. Notified Taye with PAT who will work on in-patient psychiatric placement for this patient who is COVID positive. QUINN updated pt's case assembler Angelica from [facility]. SW following.
[2020-09-07 18:52] VITALS: BP 105/58
[2020-09-07] MEDS: guaiFENesin DM 200MG/20MG 10 ML SYRUP PO PRN (21:00)
[2020-09-08 03:00] VITALS: BP 109/67
[2020-09-08 07:00] VITALS: BP 126/64
[2020-09-08] MEDS: APIXABAN 5 MG TABLET. PO SCH ×2 (08:21→21:56)
[2020-09-08] MEDS: SERTRALINE 50 MG TABLET. PO SCH (08:21)
--- NOTE | 2020-09-08 08:59 | PDOC ---
[employer] PROGRESS NOTE Date of Service DOS: DATE: 09/08/20 TIME: 08:59 Chief Complaint Chief Complaint A/P: Suicidal ideation - 1-1 sitter. P.A.T. consult. Cont home meds COVID 19 - not currently hypoxic, will observe. Transaminitis - likely from COVID 19. Will monitor LFTs Bipolar, Depression - had invega depo on 08/15/2020. 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 This is complicated by his COVID 19 diagnosis and will delay his necessary t reatment at least 10 days History of Present Illness History of Present Illness Mr Falcon is a 40 yo M w/ PMHx Bipolar, Depression, Hepatitis, Liver Disease, right ear deafness, PTSD, smoker, methamphetamine abuse in remission who was brought to ED via EMS from [facility] for evaluation cough, fever, sore throat, body ache for 2 days. Patient denies any abdominal pain, no chest pain, no trouble breathing. Patient also said he is suicidal, had no specific plan he had a lot of going on in his life that he does not want to live anymore. When asked about a plan he tells me he would probably overdose. On further review he notes another resident at his rehab facility has COVID 19. He was recently treated for DVT of his LLE and bipolar disorder at [facility] 08/15/2020 and has been undergoing drug rehabilitation inpatient for his methamphetamine abuse history. In ED labs notable for COVID 19 rapid antigen test positive, WBC 9, Hb 13.3, platelets 235, Na 139, K 3.7, BUN 9, Cr 0.8, glucose 92, AST 49, ALT 77. Admitted for further care. 09/06: No overnight events. Afebrile. Has some shortness of breath. He is still saying he is suicidal, but notes no plan. 09/07: Afebrile. No overnight events. Throat culture returned with normal maranda. No shortness of breath today. States he is still suicidal and is willing to go anywhere inpatient for psychiatric care. Afebrile. No overnight events. No shortness of breath. Liver enzymes a little elevated. Tells me still suicidal today but asking to speak with his mother sister name is Isha Nino and he would like his cell phone. Have advised him we can make the call for him. Vitals/I&O Vitals/I&O: Vital Signs Date Time Temp Pulse Resp B/P (MAP) Pulse Ox O2 Delivery O2 Flow Rate FiO2 09/08/20 08:00 Room Air 09/08/20 07:00 98.0 86 18 126/64 (84) 95 98.0 I & O 09/07/20 09/07/20 09/08/20 15:00 23:00 07:00 Intake Total 280 ml 120 ml Output Total 0 ml Balance 280 ml 120 ml 0 ml Physical Exam General: Alert, Oriented X3, Cooperative, mild distress Abdomen: Normal bowel sounds, Soft, No tenderness, No hepatosplenomegaly, No masses Extremities: No clubbing, No cyanosis, No edema, Normal pulses, No tenderness/swelling Skin: No rashes, No breakdown, No significant lesion Labs Labs: Laboratory Tests Test 09/07/20 13:46 White Blood Count 5.9 x10^3/uL (4.0-11.0) Red Blood Count 4.64 x10^6/uL (4.30-5.70) Hemoglobin 14.1 g/dL (13.0-17.5) Hematocrit 42.9 % (39.0-53.0) Mean Corpuscular Volume 93 fL (79-100) Mean Corpuscular Hemoglobin 30 pg (25-35) Mean Corpuscular Hemoglobin Concent 33 g/dL (31-37) Red Cell Distribution Width 14.1 % (11.5-14.5) Platelet Count 252 x10^3/uL (140-400) Neutrophils (%) (Auto) 61 % (31-73) Lymphocytes (%) (Auto) 26 % (24-48) Monocytes (%) (Auto) 11 % (0-9) Eosinophils (%) (Auto) 2 % (0-3) Basophils (%) (Auto) 0 % (0-3) Neutrophils # (Auto) 3.6 x10^3/uL (1.8-7.7) Lymphocytes # (Auto) 1.5 x10^3/uL (1.0-4.8) Monocytes # (Auto) 0.7 x10^3/uL (0.0-1.1) Eosinophils # (Auto) 0.1 x10^3/uL (0.0-0.7) Basophils # (Auto) 0.0 x10^3/uL (0.0-0.2) Sodium Level 143 mmol/L (136-145) Potassium Level 3.6 mmol/L (3.5-5.1) Chloride Level 104 mmol/L (98-107) Carbon Dioxide Level 29 mmol/L (21-32) Anion Gap 10 (6-14) Blood Urea Nitrogen 11 mg/dL (8-26) Creatinine 0.6 mg/dL (0.7-1.3) Estimated GFR (Cockcroft-Gault) 150.0 BUN/Creatinine Ratio 18 (6-20) Glucose Level 111 mg/dL (70-99) Calcium Level 7.9 mg/dL (8.5-10.1) Total Bilirubin 0.5 mg/dL (0.2-1.0) Aspartate Amino Transf (AST/SGOT) 91 U/L (15-37) Alanine Aminotransferase (ALT/SGPT) 164 U/L (16-63) Alkaline Phosphatase 82 U/L (46-116) Total Protein 6.5 g/dL (6.4-8.2) Albumin 3.2 g/dL (3.4-5.0) Albumin/Globulin Ratio 1.0 (1.0-1.7) Assessment and Plan Assessmemt and Plan Problems Medical Problems: (1) COVID-19 virus infection Status: Acute (2) Suicidal ideation Status: Acute Comment Review of Relevant I have reviewed the following items rex (where applicable) has been applied. Justifications for Admission Other Justification TIA FARMER MD Sep 08, 2020 08:59
[2020-09-08] MEDS: CALCIUM CARBONATE 500 MG TAB.CHEW PO PRN (09:42)
[2020-09-08 11:00] VITALS: BP 150/88
[2020-09-08 15:00] VITALS: BP 130/83
--- NOTE | 2020-09-08 17:16 | NUR ---
SW following for discharge planning. Spoke with RN and reviewed chart. Pt was swabbed again today, 09/08 for COVID (rapid was positive). Spoke with Taye and there are no in-patient psychiatric facilities are taking COVID positive patients. Pt remains on 1:1 for SI. Spoke with CM from [facility] who stated technology sales specialist will call pt tomorrow, 09/09 to finalize application for housing. SW following.
[2020-09-08 19:05] VITALS: BP 133/80
[2020-09-08 23:03] VITALS: BP 117/63
[2020-09-09 03:03] VITALS: BP 131/86
[2020-09-09 07:11] VITALS: BP 131/86
[2020-09-09] MEDS: APIXABAN 5 MG TABLET. PO SCH ×2 (08:24→21:37)
[2020-09-09] MEDS: IBUPROFEN 200 MG TABLET. PO PRN ×2 (09:30→21:40)
--- NOTE | 2020-09-09 10:56 | PDOC ---
[employer] PROGRESS NOTE Date of Service DOS: DATE: 09/09/20 TIME: 10:54 Chief Complaint Chief Complaint A/P: Suicidal ideation - 1-1 sitter. P.A.T. consult. Cont home meds COVID 19 - not currently hypoxic, will observe. Transaminitis - likely from COVID 19. Will monitor LFTs Bipolar, Depression - had invega depo on 08/15/2020. 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 This is complicated by his COVID 19 diagnosis and will delay his necessary t reatment at least 10 days History of Present Illness History of Present Illness Mr Falcon is a 40 yo M w/ PMHx Bipolar, Depression, Hepatitis, Liver Disease, right ear deafness, PTSD, smoker, methamphetamine abuse in remission who was brought to ED via EMS from [facility] for evaluation cough, fever, sore throat, body ache for 2 days. Patient denies any abdominal pain, no chest pain, no trouble breathing. Patient also said he is suicidal, had no specific plan he had a lot of going on in his life that he does not want to live anymore. When asked about a plan he tells me he would probably overdose. On further review he notes another resident at his rehab facility has COVID 19. He was recently treated for DVT of his LLE and bipolar disorder at [facility] 08/15/2020 and has been undergoing drug rehabilitation inpatient for his methamphetamine abuse history. In ED labs notable for COVID 19 rapid antigen test positive, WBC 9, Hb 13.3, platelets 235, Na 139, K 3.7, BUN 9, Cr 0.8, glucose 92, AST 49, ALT 77. Admitted for further care. 09/06: No overnight events. Afebrile. Has some shortness of breath. He is still saying he is suicidal, but notes no plan. 09/07: Afebrile. No overnight events. Throat culture returned with normal maranda. No shortness of breath today. States he is still suicidal and is willing to go anywhere inpatient for psychiatric care. 09/08: Afebrile. No overnight events. No shortness of breath. Liver enzymes a little elevated. Tells me still suicidal today but asking to speak with his mother sister name is Isha Nino and he would like his cell phone. Have advised him we can make the call for him. Afebrile. No overnight events. No SOB. Still suicidal with a plan to harm himself if he were discharged. Vitals/I&O Vitals/I&O: Vital Signs Date Time Temp Pulse Resp B/P (MAP) Pulse Ox O2 Delivery O2 Flow Rate FiO2 09/09/20 08:00 Room Air 09/09/20 07:11 98.3 82 20 131/86 (101) 96 98.3 l I & O 09/08/20 09/08/20 09/09/20 15:00 23:00 07:00 Intake Total 240 ml 300 ml Output Total 0 ml Balance 240 ml 300 ml 0 ml Physical Exam General: Alert, Oriented X3, Cooperative, mild distress Abdomen: Normal bowel sounds, Soft, No tenderness, No hepatosplenomegaly, No masses Extremities: No clubbing, No cyanosis, No edema, Normal pulses, No tenderness/swelling Skin: No rashes, No breakdown, No significant lesion Assessment and Plan Assessmemt and Plan Problems Medical Problems: (1) COVID-19 virus infection Status: Acute (2) Suicidal ideation Status: Acute Comment Review of Relevant I have reviewed the following items rex (where applicable) has been applied. Justifications for Admission Other Justification TIA FARMER MD Sep 09, 2020 10:56
[2020-09-09 11:00] VITALS: BP 132/92
[2020-09-09 15:00] VITALS: BP 153/83
--- NOTE | 2020-09-09 17:01 | NUR ---
QUINN following for discharge planning. Spoke with RN and reviewed chart. Pt's COVID result is positive. Pt remains SI. QUINN spoke with Zach from [facility] and asked that pt be seen this weekend to see if pt can contract for safety and discharge to the [facility] ([phone]) near [facility]. The site medical director Servando ([phone]) has a contract with the [facility] for those who need housing and are COVID positive. QUINN provided contact information for [employer] to Zach. QUINN also provided contact information for pt's Christopher FARRIS CM who is assisting pt in applying for housing. Pt could possibly stay at the [facility] in the interim until housing is approved. QUINN following. Addendum: 09/12/20 at 1155 by TAL BALL QUINN reviewed chart and spoke with Zach from [facility] this morning. Pt was able to discharge self-care to the [facility] over the weekend with out-patient follow up services. No further SW needs at this time.
[2020-09-09 19:00] VITALS: BP 126/77
[2020-09-09] MEDS ORDERED: SERTRALINE 50 MG TABLET. PO SCH (21:00)
[2020-09-09 23:00] VITALS: BP 135/82
[2020-09-10 03:00] VITALS: BP 118/70
[2020-09-10 07:59] VITALS: BP 115/63
--- NOTE | 2020-09-10 08:20 | PDOC ---
[employer] PROGRESS NOTE Date of Service DOS: DATE: 09/10/20 TIME: 08:20 Chief Complaint Chief Complaint A/P: Suicidal ideation - 1-1 sitter. P.A.T. consult. No longer suicidal COVID 19 - not currently hypoxic, will observe. Transaminitis - likely from COVID 19. Will monitor LFTs Bipolar, Depression - had invega depo on 08/15/2020. 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 This is complicated by his COVID 19 diagnosis and will delay his necessary treatment at least 10 days History of Present Illness History of Present Illness Mr Falcon is a 40 yo M w/ PMHx Bipolar, Depression, Hepatitis, Liver Disease, right ear deafness, PTSD, smoker, methamphetamine abuse in remission who was brought to ED via EMS from [facility] for evaluation cough, fever, sore throat, body ache for 2 days. Patient denies any abdominal pain, no chest pain, no trouble breathing. Patient also said he is suicidal, had no specific plan he had a lot of going on in his life that he does not want to live anymore. When asked about a plan he tells me he would probably overdose. On further review he notes another resident at his rehab facility has COVID 19. He was recently treated for DVT of his LLE and bipolar disorder at [facility] 08/15/2020 and has been undergoing drug rehabilitation inpatient for his methamphetamine abuse history. In ED labs notable for COVID 19 rapid antigen test positive, WBC 9, Hb 13.3, platelets 235, Na 139, K 3.7, BUN 9, Cr 0.8, glucose 92, AST 49, ALT 77. Admitted for further care. 09/06: No overnight events. Afebrile. Has some shortness of breath. He is still saying he is suicidal, but notes no plan. 09/07: Afebrile. No overnight events. Throat culture returned with normal maranda. No shortness of breath today. States he is still suicidal and is willing to go anywhere inpatient for psychiatric care. 09/08: Afebrile. No overnight events. No shortness of breath. Liver enzymes a little elevated. Tells me still suicidal today but asking to speak with his mother sister name is Isha Nino and he would like his cell phone. Have advised him we can make the call for him. 09/09: Afebrile. No overnight events. No SOB. Still suicidal with a plan to harm himself if he were discharged. Afebrile no overnight events. No shortness of breath. He has a safe discharge plan to a hot where COVID-19 patients are convalescing. Once he was informed of this available living space he notes that he no longer has a plan for esquivel icide. Will be given a 1 day prescription for Eliquis and Zoloft and will be able to obtain his prescriptions from [facility] on 09/12/2020. Vitals/I&O Vitals/I&O: Vital Signs Date Time Temp Pulse Resp B/P (MAP) Pulse Ox O2 Delivery O2 Flow Rate FiO2 09/10/20 03:00 98.0 70 18 118/70 (86) 97 Room Air 98.0 I & O 0 09/09/20 09/09/20 09/10/20 15:00 23:00 07:00 Intake Total 300 ml Balance 300 ml Physical Exam General: Alert, Oriented X3, Cooperative, mild distress Abdomen: Normal bowel sounds, Soft, No tenderness, No hepatosplenomegaly, No masses Extremities: No clubbing, No cyanosis, No edema, Normal pulses, No tenderness/swelling Skin: No rashes, No breakdown, No significant lesion Assessment and Plan Assessmemt and Plan Problems Medical Problems: (1) COVID-19 virus infection Status: Acute (2) Suicidal ideation Status: Acute Comment Review of Relevant I have reviewed the following items rex (where applicable) has been applied. Medications: Current Medications Medications (Trade) Dose Ordered Sig/Julio Cesar Route PRN Reason Start Time Stop Time Status Last Admin Dose Admin Sertraline HCl (Zoloft) 50 mg QHS PO 09/09/20 21:00 09/09/20 21:37 Justifications for Admission Other Justification TIA FARMER MD Sep 10, 2020 08:20
[2020-09-10] MEDS: APIXABAN 5 MG TABLET. PO SCH (08:24)
[2020-09-10] MEDS: CALCIUM CARBONATE 500 MG TAB.CHEW PO PRN (09:49)
[2020-09-10 11:59] VITALS: BP 114/64
[2020-09-10] MEDS ORDERED: APIX5TAB PO (13:59)
[2020-09-10] MEDS ORDERED: SERT-268 PO (13:59)
--- NOTE | 2020-09-10 14:14 | PDOC3 ---
Discharge Summary Visit Information Date of Admission: Sep 04, 2020 Date of Discharge: Sep 10, 2020 Admitting Diagnosis: Suicidal. COVID 19 Final Diagnosis Problems Medical Problems: (1) COVID-19 virus infection Status: Acute (2) Suicidal ideation Status: Acute Brief Hospital Course Allergies Allergies Coded Allergies Type Severity Reaction Last Updated Verified acetaminophen Allergy Intermediate RASH 09/06/20 Yes Vital Signs Vital Signs Date Time Temp Pulse Resp B/P (MAP) Pulse Ox O2 Delivery O2 Flow Rate FiO2 09/10/20 11:59 97.5 96 20 114/64 (81) 99 Room Air 97.5 Lab Results Laboratory Tests Test 09/08/20 15:15 Coronavirus (PCR) Detected (Not Detected) Brief Hospital Course Mr Falcon is a 40 yo M w/ PMHx Bipolar, Depression, Hepatitis, Liver Disease, right ear deafness, PTSD, smoker, methamphetamine abuse in remission who was brought to ED via EMS from [facility] for evaluation cough, fever, sore throat, body ache for 2 days. Patient denies any abdominal pain, no chest pain, no trouble breathing. Patient also said he is suicidal, had no specific plan he had a lot of going on in his life that he does not want to live anymore. When asked about a plan he tells me he would probably overdose. On further review he notes another resident at his rehab facility has COVID 19. He was recently treated for DVT of his LLE and bipolar disorder at [facility] 08/15/2020 and has been undergoing drug rehabilitation inpatient for his methamphetamine abuse history. In ED labs notable for COVID 19 rapid antigen test positive, WBC 9, Hb 13.3, platelets 235, Na 139, K 3.7, BUN 9, Cr 0.8, glucose 92, AST 49, ALT 77. Admitted for further care. 09/06: No overnight events. Afebrile. Has some shortness of breath. He is still saying he is suicidal, but notes no plan. 09/07: Afebrile. No overnight events. Throat culture returned with normal maranda. No shortness of breath today. States he is still suicidal and is willing to go anywhere inpatient for psychiatric care. 09/08: Afebrile. No overnight events. No shortness of breath. Liver enzymes a little elevated. Tells me still suicidal today but asking to speak with his mother sister name is Isha Nino and he would like his cell phone. Have advised him we can make the call for him. 09/09: Afebrile. No overnight events. No SOB. Still suicidal with a plan to harm himself if he were discharged. Afebrile no overnight events. No shortness of breath. He has a safe discharge plan to a hotel where COVID-19 patients are convalescing. Once he was informed of this available living space he notes that he no longer has a plan for suicide. Will be given a 1 day prescription for Eliquis and Zoloft and will be able to obtain his prescriptions from [facility] on 09/12/2020. Problem list: Suicidal ideation - 1-1 sitter. P.A.T. consult. No longer suicidal COVID 19 - not currently hypoxic, will observe. Transaminitis - likely from COVID 19. Will monitor LFTs Bipolar, Depression - had invega depo on 08/15/2020. 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, has been sober Left leg DVT - on eliquis, will cont Greater than 30 minutes spent on d/c to hotel Discharge Information Condition at Discharge: Improved Follow Up: Weeks (1) Disposition/Orders: D/C to a [facility] Scheduled Apixaban (Eliquis) 5 Mg Tablet, 5 MG PO BID for DVT for 1 Days, #2 Prescribed by: TIA FARMER MD on 09/10/20 1359 Sertraline Hcl (Sertraline Hcl) 100 Mg Tablet, 50 MG PO DAILY for Depression/Bipolar for 1 Days, #1 Ref 0 Prescribed by: TIA FARMER MD on 09/10/20 1359 Discontinued Medications Apixaban (Eliquis) 5 Mg Tab.ds.pk, 5 MG PO BID for DVT for 30 Days, #60 Ref 2 (Reported) Entered as Reported by: TIA FARMER MD on 09/05/20 0711 Last Action: Converted on 09/05/20 07 by TIA FARMER MD Cephalexin (Cephalexin) 500 Mg Capsule, 1 CAP PO QID, #40 Prescribed by: KODY SOTO MD on 10/28/18155 Paliperidone Palmitate (Invega Sustenna) 156 Mg/1 Ml Disp.syrin, 156 MG IM [id number] for Bipolar disorder for 28 Days, #1 (Reported) Entered as Reported by: TIA FARMER MD on 09/05/20710 Last Taken: Unknown Dose on 08/15/20 Last Action: New Order on 09/05/20710 by TIA FARMER MD Polymyxin B Sulf/Trimethoprim (Polymyxin B-Tmp Eye Drops) 10 Ml Drops, 1 DROP EACHEYE QID, #10 Prescribed by: KODY SOTO MD on 10/28/18155 Justicifation of Admission Dx: Justifications for Admission: Justification of Admission Dx: Yes TIA FARMER MD Sep 10, 2020 14:14
--- NOTE | 2020-09-10 16:40 | NUR ---
Discharge Note: STEPHANIE HICKMAN [address] Discharge instructions and discharge home medications reviewed with patient and a copy given. All questions have been answered and understanding verbalized. The following instructions and handouts were given: Take home meds as directed. 1 day supply of sertraline and eliquis given to the patient. Quarantine for 10 days. COVID precautions, wear mask, wash hands with soap and water. To resume treatment at [facility] after quarantine Watch out for severe dyspnea, fever, nausea, vomiting, diarrhea and severe weakness. Patient discharged was discharged ambulatory on room air to [facility] via cab at 1605.
[2020-09-11] MEDS ORDERED: FLU VACC QS 2020-21(6MOS+)/PF 0.5 ML SYRINGE. VAX IM ONE (16:30)
== END 2020-09-10 16:05 | disposition home or self-care (01) | DRG 178 ==
LOC: ER 06:42 → ED HOLD 14:15 → 6 SOUTH 09-05 17:44
PROVIDERS: ADMIT Internal Medicine; ATTEND Internal Medicine
DX: U07.1 COVID-19 (principal); I82.402 Acute embolism and thrombosis of unspecified deep veins of left lower extremity; R45.851 Suicidal ideations; K75.9 Inflammatory liver disease, unspecified; F15.11 Other stimulant abuse, in remission; F41.9 Anxiety disorder, unspecified; F31.9 Bipolar disorder, unspecified; H91.91 Unspecified hearing loss, right ear; F43.10 Post-traumatic stress disorder, unspecified; F17.210 Nicotine dependence, cigarettes, uncomplicated; Z90.49 Acquired absence of other specified parts of digestive tract; Z88.6 Allergy status to analgesic agent; Z81.8 Family history of other mental and behavioral disorders
CPT/HCPCS: 36415; 71045; 80053; 80307; 80329; 81001; 85025; 87070; 87426; 87804; 87880; 99285; G0480; U0003; G0378